=== PATIENT | female | born 1965 | race Caucasian/White ===

== ENCOUNTER 2017-02-18 20:21 | Emergency (ER) | payer MEDICAID ==
[~2017-02-18] VITALS: Ht 157.5 cm; Wt 104.5 kg
[~2017-02-18 20:21] MED LIST: ASPI-664 PO; CEPH-443 PO; CLIN-73 PO; HYDR-3498 PO; HYDR-762 PO; IBUP-1542 PO; IBUP800T25 PO; LISI30TA47 PO; MELO-110 PO; MTF1000T PO; NAPR-688 PO; ONDA4TAB14 PO; ONDA4TAB35 PO; PANT40TA3 PO; SITA1TBM PO; SMV40T PO
[2017-02-18 20:30] VITALS: Ht 157.5 cm; Wt 104.5 kg
--- NOTE | 2017-02-19 03:19 | ERA ---
ER Documentation Chief Complaint Date/Time DATE: 02/19/17 TIME: 03:18 Chief Complaint Dental pain HPI The patient is a 51-year-old female, presenting to the ER because of right lower molar pain for the last couple of days. She she was seen by her dentist who sent her to the ER because of high blood pressure and high glucose. He denies fever, chills, neck pain, chest pain, dyspnea, abdominal pain, vomiting, dysuria, diarrhea. She does not smoke or drink Past medical history: Diabetes mellitus, hypertension, dyslipidemia, depression Past surgical history: ROS All systems reviewed and are negative except as per history of present illness. Medications Home Meds Active Scripts Hydrocodone/Acetaminophen ([place] 10-325 Tablet) 1 Each Tablet, 1 TAB PO Q6H Y for PAIN, #7 TAB Prov:JUAN DIEGO MITCHELL MD 02/19/17 Ibuprofen* (Motrin*) 600 Mg Tab, 600 MG PO Q6H Y for PAIN AND OR ELEVATED TEMP, #30 TAB Prov:JUAN DIEGO MITCHELL MD 02/19/17 Clindamycin Hcl* (Clindamycin Hcl*) 300 Mg Capsule, 300 MG PO QID for 10 Days, CAP Prov:JUAN DIEGO MITCHELL MD 02/19/17 Ondansetron (Ondansetron Odt) 4 Mg Tab.rapdis, 4 MG PO Q6H Y for NAUSEA AND/OR VOMITING, #30 TAB Prov:AZEB MONTIEL MD 06/12/16 Ibuprofen* (Motrin*) 600 Mg Tab, 600 MG PO Q6H Y for PAIN AND OR ELEVATED TEMP, #30 TAB Prov:AZEB MONTIEL MD 06/12/16 Hydrocodone Bit-Acetaminophen* ([place]*) 10-325 Mg Tablet, 1 TAB PO Q6 Y for PAIN , #20 TAB Prov:HUBERT RED PA-C 09/26/15 Clindamycin Hcl* (Clindamycin Hcl*) 300 Mg Capsule, 300 MG PO TID for 10 Days, CAP Prov:HUBERT RED PA-C 09/26/15 Ibuprofen* (Motrin*) 800 Mg Tab, 800 MG PO Q6, #20 TAB Prov:DONNA ORNELAS MD 09/25/15 Hydrocodone Bit-Acetaminophen* ([place]*) 5-325 Mg Tab, 1 TAB PO Q6 Y for PAIN, # 16 TAB Prov:DONNA ORNELAS MD 09/25/15 Cephalexin* (Keflex*) 500 Mg Capsule, 500 MG PO QID for 10 Days, CAP Prov:DONNA ORNELAS MD 09/25/15 Pantoprazole* (Protonix*) 40 Mg Tablet.dr, 40 MG PO DAILY, #14 TAB Prov:ASHLEY BIRMINGHAM MD 09/04/15 Ondansetron Hcl* (Zofran* ODT) 4 mg -ODT Tab.disper, 4 MG PO Q6 Y for NAUSEA AND /OR VOMITING, #10 TAB Prov:ASHLEY BIRMINGHAM MD 09/04/15 Reported Medications Aspirin (Aspirin Low Dose) 81 Mg Tablet.dr, 81 MG PO DAILY 06/22/13 Sitagliptin Phos-Metformin Hcl (Janumet XR) 1 Each Tbmp.24hr, 1 EACH PO DAILY 06/22/13 Lisinopril* (Lisinopril*) 30 Mg Tablet, 40 MG PO DAILY 05/09/13 Meloxicam* (Mobic*) 15 Mg Tablet, 15 MG PO DAILY 05/09/13 Metformin* (Glucophage*) 1,000 Mg Tablet, 1000 MG PO BID 05/09/13 Naproxen* (Naproxen*) 500 Mg Tablet, 500 MG PO Y 05/09/13 Simvastatin (Simvastatin) 40 Mg Tablet, 40 MG PO DAILY 05/09/13 Allergies Allergies: Coded Allergies: Penicillins (Verified Allergy, Mild, 03/16/16) PMhx/Soc History of Surgery: Yes (C SECTION ) Anesthesia Reaction: No Hx Neurological Disorder: No Hx Respiratory Disorders: No Hx Cardiac Disorders: Yes (HTN) Hx Psychiatric Problems: No (DEPRESSION ) Hx Miscellaneous Medical Probl: Yes (CHOLESTEROL, DIABETES, ARTHRITIS) Hx Alcohol Use: No Hx Substance Use: No Hx Tobacco Use: No Physical Exam Vitals Vital Signs Date Time Temp Pulse Resp B/P Pulse Ox O2 Delivery O2 Flow Rate FiO2 02/19/17 03:28 87 27 180/111 100 Room Air 02/18/17 20:30 98.0 91 18 170/101 100 Physical Exam Const: No acute distress. Head: Atraumatic. Eyes: Normal Conjunctiva. ENT: Normal External Ears, Nose and Mouth. Decayed right lower molar with erythematous, Neck: Full range of motion. No meningismus. Resp: Clear to auscultation bilaterally. Cardio: Regular rate and rhythm, no murmurs. Abd: Soft, non distended, normal bowel sounds, non tender. Skin: No petechiae or rashes. Back: No midline or flank tenderness. Ext: No cyanosis, or edema. Neur: Awake and alert. No focal deficit Psych: Normal Mood and Affect. Result Diagram: 02/19/17 0344 02/19/17 0344 Results 24 hrs Laboratory Tests Test 02/18/17 20:35 02/19/17 03:31 02/19/17 03:44 Bedside Glucose 298mg/dL 328mg/dL White Blood Count 12.910^3/ul Red Blood Count 5.1310^6/ul Hemoglobin 15.5g/dl Hematocrit 44.8% Mean Corpuscular Volume 87.3fl Mean Corpuscular Hemoglobin 30.2pg Mean Corpuscular Hemoglobin Concent 34.6g/dl Red Cell Distribution Width 13.1% Platelet Count 21494^3/UL Mean Platelet Volume 11.6fl Neutrophils % 66.8% Lymphocytes % 24.2% Monocytes % 6.6% Eosinophils % 1.9% Basophils % 0.2% Nucleated Red Blood Cells % 0.0/100WBC Neutrophils # 8.610^3/ul Lymphocytes # 3.110^3/ul Monocytes # 0.910^3/ul Eosinophils # 0.210^3/ul Basophils # 0.010^3/ul Nucleated Red Blood Cells # 0.010^3/ul Sodium Level 137mmol/L Potassium Level 4.1mmol/L Chloride Level 101mmol/L Carbon Dioxide Level 25mmol/L Anion Gap 15 Blood Urea Nitrogen 11mg/dl Creatinine 0.54mg/dl Glucose Level 349mg/dl Calcium Level 9.4mg/dl Current Medications Medications (Trade) Dose Ordered Sig/Ramon Route PRN Reason Start Time Stop Time Status Last Admin Dose Admin Sodium Chloride (NS) 1,000 ml @ 1,000 mls/hr Q1H STAT IV 02/19/17 03:25 02/19/17 04:24 DC 02/19/17 03:49 Morphine Sulfate (morphine) 4 mg ONCE STAT IV 02/19/17 04:15 02/19/17 04:16 DC 02/19/17 04:21 Ondansetron HCl (Zofran Inj) 4 mg ONCE STAT IV 02/19/17 04:15 02/19/17 04:16 DC 02/19/17 04:20 Ketorolac Tromethamine (Toradol) 30 mg ONCE STAT IV 02/19/17 05:12 02/19/17 05:13 DC 02/19/17 05:17 Acetaminophen/ Hydrocodone Bitart ([place] (10/325)) 1 tab ONCE ONCE PO 02/19/17 06:00 02/19/17 06:01 Clindamycin HCl (Cleocin) 300 mg ONCE ONCE PO 02/19/17 06:00 02/19/17 06:01 Procedures/MDM MEDICAL MAKING DECISION: Th e patient is a 51-year-old female, presenting with acute dental pain, acute diabetic hyperglycemia. She was treated with 1 L normal saline for acute hyperglycemia, morphine 4 mg IV, Toradol 30 mg IV, [place] 10 mg p.o. for pain, Zofran 4 mg IV for nausea and clindamycin 300 mg p.o. for acute dental infection with good response. Departure Diagnosis: Primary Impression: Pain, dental Additional Impression: Hyperglycemia Condition: Good Comments I discussed the findings with the patient. I advised the patient to follow-up with the dentist in the morning, and return if any concern. JUAN DIEGO MITCHELL MD February 19, 2017 03:19
[2017-02-19] MEDS ORDERED: SOD CHLORIDE 0.9% 1,000 ML IV STA (03:25)
[2017-02-19 03:56] LABS: ADD SCAN DIFF NO
[2017-02-19 04:07] LABS: BASOPHILS % 0.2 % (0.0-2.0); EOSINOPHILS # 0.2 10^3/ul (0.0-0.5); EOSINOPHILS % 1.9 % (0.0-7.0); HEMATOCRIT 44.8 % (37.0-47.0); HEMOGLOBIN 15.5 g/dl (12.0-16.0); LYMPHOCYTES # 3.1 10^3/ul (0.8-2.9); LYMPHOCYTES % 24.2 % (15.0-51.0); MEAN CORPUSCULAR HEMOGLOBIN 30.2 pg (29.0-33.0); MEAN CORPUSCULAR HGB CONC 34.6 g/dl (32.0-37.0); MEAN CORPUSCULAR VOLUME 87.3 fl (82.0-101.0); MEAN PLATELET VOLUME 11.6 fl (7.4-10.4); MONOCYTE # 0.9 10^3/ul (0.3-0.9); MONOCYTES % 6.6 % (0.0-11.0); NEUTROPHIL # 8.6 10^3/ul (1.6-7.5); NEUTROPHILS % 66.8 % (39.0-77.0); PLATELET COUNT 358 10^3/UL (140-415); RED BLOOD COUNT 5.13 10^6/ul (4.20-5.40); RED CELL DISTRIBUTION WIDTH 13.1 % (11.5-14.5); WHITE BLOOD COUNT 12.9 10^3/ul (4.8-10.8)
[2017-02-19 04:13] LABS: CALCIUM 9.4 mg/dl (8.4-10.2); CREATININE 0.54 mg/dl (0.44-1.00); POTASSIUM 4.1 mmol/L (3.5-5.1)
[2017-02-19] MEDS ORDERED: ONDANSETRON 4 MG INJ IV STA (04:15)
[2017-02-19] MEDS ORDERED: morphine 4 MG/ML VIAL IV STA (04:15)
[2017-02-19] MEDS ORDERED: KETOROLAC 30 MG INJ IV STA (05:12)
[2017-02-19] MEDS ORDERED: IBUP-1542 PO (05:34)
[2017-02-19] MEDS ORDERED: HYDR-902 PO (05:34)
[2017-02-19] MEDS ORDERED: CLIN-73 PO (05:34)
[2017-02-19 06:00] VITALS: BP 136/92; PULSE 98; RESP 17; TEMP 98.8
[2017-02-19] MEDS ORDERED: CLINDAMYCIN 300 MG CAP PO ONE (06:00)
[2017-02-19] MEDS ORDERED: HYDROCODONE/APAP (10/325) TAB PO ONE (06:00)
== END 2017-02-19 06:06 | disposition home or self-care (01) ==
LOC: E/R 20:21
DX: K08.89 Other specified disorders of teeth and supporting structures (principal); E11.649 Type 2 diabetes mellitus with hypoglycemia without coma; I10 Essential (primary) hypertension; Z79.84 Long term (current) use of oral hypoglycemic drugs
CPT/HCPCS: 36415; 80048; 82962; 85025; 96361; 96374; 96375; J1885; J2270; J2405; J7030; Z7502; Z7610

== ENCOUNTER 2019-01-04 22:25 | Emergency (ER) | payer SELFPAY ==
[~2019-01-04 22:25] MED LIST changes: -ASPI-664 PO; +ASPI-818 PO; -CLIN-73 PO; +CLIN300C10 PO; +HYDR-3980 PO; -IBUP800T25 PO; +IBUP800T48 PO; -MELO-110 PO; +MELO15TA30 PO; +SIMV40TA3 PO; -SMV40T PO
== END 2019-01-04 23:15 | disposition left against medical advice (07) ==
LOC: E/R 22:25
DX: Z53.21 Procedure and treatment not carried out due to patient leaving prior to being seen by health care provider (principal)

== ENCOUNTER 2019-02-11 19:15 | Emergency (ER) | payer MEDICAID ==
[~2019-02-11] VITALS: Ht 157.5 cm; Wt 94.5 kg
[2019-02-11 19:26] VITALS: Ht 157.5 cm; Wt 94.5 kg
--- NOTE | 2019-02-11 19:47 | ERD ---
ER Documentation Chief Complaint Chief Complaint "HIGH BLOOD SUGAR" AND PALPITATIONS. HPI This is a 53-year-old female presents for an episode of palpitations, patient states that her blood sugar has been high the last 2 days, she is on event, and felt very anxious, and felt a feeling of shortness of breath tachycardia, for several seconds but subsequently resolved. This week she has noted that her blood sugar has been on the higher side in the 300s. She has not had any vomiting, no fever, no abdominal pain, no chest pain. Her symptoms self resolved, without any treatment ROS All systems reviewed and are negative except as per history of present illness. Medications Home Meds Active Scripts Hydrocodone/Acetaminophen ([place] 10-325 Tablet) 1 Each Tablet, 1 TAB PO Q6H PRN for PAIN, #7 TAB Prov:JUAN DIEGO MITCHELL MD 02/19/17 Ibuprofen* (Motrin*) 600 Mg Tab, 600 MG PO Q6H PRN for PAIN AND OR ELEVATED TEMP, #30 TAB Prov:JUAN DIEGO MITCHELL MD 02/19/17 Clindamycin Hcl* (Clindamycin Hcl*) 300 Mg Capsule, 300 MG PO QID for 10 Days, C AP Prov:JUAN DIEGO MITCHELL MD 02/19/17 Ondansetron (Ondansetron Odt) 4 Mg Tab.rapdis, 4 MG PO Q6H PRN for NAUSEA AND/OR VOMITING, #30 TAB Prov:AZEB MONTIEL MD 06/12/16 Ibuprofen* (Motrin*) 600 Mg Tab, 600 MG PO Q6H PRN for PAIN AND OR ELEVATED TEMP, #30 TAB Prov:AZEB MONTIEL MD 06/12/16 Hydrocodone Bit-Acetaminophen* ([place]*) 10-325 Mg Tablet, 1 TAB PO Q6 PRN for PAIN, #20 TAB Prov:HUBERT RED PA-C 09/26/15 Clindamycin Hcl* (Clindamycin Hcl*) 300 Mg Capsule, 300 MG PO TID for 10 Days, CAP Prov:HUBERT RED PA-C 09/26/15 Ibuprofen* (Motrin*) 800 Mg Tab, 800 MG PO Q6, #20 TAB Prov:DONNA ORNELAS MD 09/25/15 Hydrocodone Bit-Acetaminophen* ([place]*) 5-325 Mg Tab, 1 TAB PO Q6 PRN for PAIN, #16 TAB Prov:DONNA ORNELAS MD 09/25/15 Cephalexin* (Keflex*) 500 Mg Capsule, 500 MG PO QID for 10 Days, CAP Prov:DONNA ORNELAS MD 09/25/15 Pantoprazole* (Protonix*) 40 Mg Tablet.dr, 40 MG PO DAILY, #14 TAB Prov:ASHLEY BIRMINGHAM MD 09/04/15 Ondansetron Hcl* (Zofran* ODT) 4 mg -ODT Tab.disper, 4 MG PO Q6 PRN for NAUSEA AND/OR VOMITING, #10 TAB Prov:ASHLEY BIRMINGHAM MD 09/04/15 Reported Medications Aspirin (Aspirin Low Dose) 81 Mg Tablet.dr, 81 MG PO DAILY 06/22/13 Sitagliptin Phos-Metformin Hcl (Janumet XR) 1 Each Tbmp.24hr, 1 EACH PO DAILY 06/22/13 Lisinopril* (Lisinopril*) 30 Mg Tablet, 40 MG PO DAILY 05/09/13 Meloxicam* (Mobic*) 15 Mg Tablet, 15 MG PO DAILY 05/09/13 Metformin* (Glucophage*) 1,000 Mg Tablet, 1000 MG PO BID 05/09/13 Naproxen* (Naproxen*) 500 Mg Tablet, 500 MG PO PRN 05/09/13 Simvastatin (Simvastatin) 40 Mg Tablet, 40 MG PO DAILY 05/09/13 Allergies Allergies: Coded Allergies: Penicillins (Verified Allergy, Mild, 03/16/16) PMhx/Soc History of Surgery: Yes (C SECTION ) Anesthesia Reaction: No Hx Neurological Disorder: No Hx Respiratory Disorders: No Hx Cardiac Disorders: Yes (HTN) Hx Psychiatric Problems: No (DEPRESSION ) Hx Miscellaneous Medical Probl: Yes (CHOLESTEROL, DIABETES, ARTHRITIS) Hx Alcohol Use: No Hx Substance Use: No Hx Tobacco Use: No Physical Exam Vitals Vital Signs Date Temp Pulse Resp B/P (MAP) Pulse Ox O2 O2 Flow FiO2 Time Delivery Rate 02/11/19 102 21 179/111 98 Room Air 21:34 (133) 02/11/19 104 21 160/106 98 Room Air 20:30 (124) 02/11/19 108 24 163/111 99 Room Air 19:44 (128) 02/11/19 98.5 115 22 184/116 99 19:26 (138) Physical Exam Const: No acute distress, well-developed well-nourished Head: Atraumatic Eyes: Normal Conjunctiva ENT: Normal External Ears, Nose and Mouth. Neck: Full range of motion. No meningismus. Resp: Clear to auscultation bilaterally, no wheezes rales or rhonchi Cardio: Regular rate and rhythm, no murmurs Abd: Soft, non tender, non distended. Normal bowel sounds Skin: No petechiae or rashes Back: No midline or flank tenderness Ext: No cyanosis, or edema Neur: Awake and alert Psych: Normal Mood and Affect Result Diagram: 02/11/19200102/11/192001 Results 24 hrs Laboratory Tests Test 02/11/19 19:25 02/11/19 20:02 02/11/19 20:09 Bedside Glucose 397 mg/dL White Blood Count 7.7 10^3/ul Red Blood Count 5.05 10^6/ul Hemoglobin 14.7 g/dl Hematocrit 43.1 % Mean Corpuscular Volume 85.3 fl Mean Corpuscular Hemoglobin 29.1 pg Mean Corpuscular 34.1 g/dl Hemoglobin Concent Red Cell Distribution Width 12.6 % Platelet Count 285 10^3/UL Mean Platelet Volume 11.5 fl Immature Granulocytes % 0.100 % Neutrophils % 43.0 % Lymphocytes % 45.6 % Monocytes % 8.2 % Eosinophils % 2.7 % Basophils % 0.4 % Nucleated Red Blood Cells % 0.0 /100WBC Immature Granulocytes # 0.010 10^3/ul Neutrophils # 3.3 10^3/ul Lymphocytes # 3.5 10^3/ul Monocytes # 0.6 10^3/ul Eosinophils # 0.2 10^3/ul Basophils # 0.0 10^3/ul Nucleated Red Blood Cells # 0.0 10^3/ul Sodium Level 139 mmol/L Potassium Level 3.9 mmol/L Chloride Level 98 mmol/L Carbon Dioxide Level 26 mmol/L Anion Gap 15 Blood Urea Nitrogen 15 mg/dl Creatinine 0.49 mg/dl Est Glomerular Filtrat > 60 mL/min Rate mL/min Glucose Level 418 mg/dl Calcium Level 9.7 mg/dl Total Bilirubin 0.3 mg/dl Direct Bilirubin 0.00 mg/dl Indirect Bilirubin 0.3 mg/dl Aspartate Amino 26 IU/L Transf (AST/SGOT) Alanine 28 IU/L Aminotransferase (ALT/SGPT) Alkaline Phosphatase 138 IU/L Troponin I < 0.012 ng/ml Total Protein 7.5 g/dl Albumin 4.4 g/dl Globulin 3.10 g/dl Albumin/Globulin Ratio 1.41 Urine Color COLORLESS Urine Clarity CLEAR Urine pH 6.0 Urine Specific [place] 1.027 Urine Ketones TRACE mg/dL Urine Nitrite NEGATIVE mg/dL Urine Bilirubin NEGATIVE mg/dL Urine Urobilinogen NEGATIVE mg/dL Urine Leukocyte Esterase NEGATIVE Yancy/ul Urine Hemoglobin NEGATIVE mg/dL Urine Glucose 3+ mg/dL Urine Total Protein NEGATIVE mg/dl Current Medications Medications Dose Sig/Ramon Start Time Status Last (Trade) Ordered Route PRN Stop Time Admin Dose Reason Admin Sodium 1,000 ml @ Q1H ONCE 02/11/19 DC 02/11/19 Chloride 1,000 mls/hr IV 21:30 21:39 02/11/19 22:29 Insulin 10 unit ONCE ONCE 02/11/19 Human SC 23:30 Regular 02/11/19 23:31 (Humulin R) Procedures/MDM This is a 53-year-old female presents for motion of hyperglycemia, as well as palpitations. Her EKG showed no evidence of arrhythmia or ischemia. She never actually had chest pain, but given her history of diabetes, I considered an anginal equivalent, and she had a cardiac work-up with a negative troponin. I discussed findings with the patient, who felt comfortable with discharge plan of care, she was given IV fluids and 10 units of insulin, she had no evidence of DK A, on lab evaluation, and she has no infectious symptoms, and was tolerating oral intake. At discharge she was in no acute distress. 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
[2019-02-11] MEDS ORDERED: SOD CHLORIDE 0.9% 1,000 ML IV ONE (21:30)
[2019-02-11] MEDS ORDERED: INSULIN REGULAR, HUMAN 100 UNIT/1 ML 3ML VIAL SC ONE (23:30)
[2019-02-12] MEDS ORDERED: INSULIN REGULAR, HUMAN 100 UNIT/1 ML 3ML VIAL SC ONE
[2019-02-12 01:30] VITALS: BP 114/91; PULSE 87; RESP 19
== END 2019-02-12 01:30 | disposition home or self-care (01) ==
LOC: E/R 19:15
DX: R00.2 Palpitations (principal); E13.65 Other specified diabetes mellitus with hyperglycemia; I10 Essential (primary) hypertension; Z79.82 Long term (current) use of aspirin; Z79.84 Long term (current) use of oral hypoglycemic drugs
CPT/HCPCS: 36415; 71045; 80053; 81003; 82962; 84484; 85025; 93005; 96372; J7030; Z7502; Z7610; J1815

== ENCOUNTER 2019-02-19 07:29 | Emergency (ER) | payer MEDICAID ==
[~2019-02-19] VITALS: Wt 90.0 kg
[2019-02-19 07:31] VITALS: BP 140/89; PULSE 79; RESP 18
[2019-02-19] MEDS ORDERED: HYDR-4011 PO (07:49)
[2019-02-19] MEDS ORDERED: IBUP800T48 PO (07:49)
[2019-02-19] MEDS ORDERED: CLIN300C10 PO (07:49)
--- NOTE | 2019-02-19 07:54 | ERD ---
ER Documentation Chief Complaint Chief Complaint TOOTH ACHE, LEFT FACIAL SWELLING HPI 53-year-old female presents with dental pain in her left frontal lower dental tooth. She has been seen here multiple times for this she has a history of tooth decay. She has not yet seen a dentist for this. No fever. She is jarret erating oral intake. No nausea or vomiting. No trauma. No chest pain palpitations no shortness of breath. ROS All systems reviewed and are negative except as per history of present illness. Medications Home Meds Active Scripts Clindamycin Hcl* (Clindamycin Hcl*) 300 Mg Capsule, 300 MG PO TID for 7 Days, CAP Prov:HUBERT RED PA-C 02/19/19 Hydrocodone/Acetaminophen ([place] 5-325 Tablet) 1 Each Tablet, 1 TAB PO Q6H PRN for PAIN, #12 TAB Prov:HUBERT RED PA-C 02/19/19 Ibuprofen* (Motrin*) 800 Mg Tab, 800 MG PO Q6, #30 TAB Prov:HUBERT RED PA-C 02/19/19 Hydrocodone/Acetaminophen ([place] 10-325 Tablet) 1 Each Tablet, 1 TAB PO Q6H PRN for PAIN, #7 TAB Prov:JUAN DIEGO MITCHELL MD 02/19/17 Ibuprofen* (Motrin*) 600 Mg Tab, 600 MG PO Q6H PRN for PAIN AND OR ELEVATED TEMP, #30 TAB Prov:JUAN DIEGO MITCHELL MD 02/19/17 Clindamycin Hcl* (Clindamycin Hcl*) 300 Mg Capsule, 300 MG PO QID for 10 Days, CAP Prov:JUAN DIEGO MITCHELL MD 02/19/17 Ondansetron (Ondansetron Odt) 4 Mg Tab.rapdis, 4 MG PO Q6H PRN for NAUSEA AND/OR VOMITING, #30 TAB Prov:AZEB MONTIEL MD 06/12/16 Ibuprofen* (Motrin*) 600 Mg Tab, 600 MG PO Q6H PRN for PAIN AND OR ELEVATED TEMP, #30 TAB Prov:AZEB MONTIEL MD 06/12/16 Hydrocodone Bit-Acetaminophen* ([place]*) 10-325 Mg Tablet, 1 TAB PO Q6 PRN for PAIN, #20 TAB Prov:HUBERT RED PA-C 09/26/15 Clindamycin Hcl* (Clindamycin Hcl*) 300 Mg Capsule, 300 MG PO TID for 10 Days, CAP Prov:HUBERT RED PA-C 09/26/15 Ibuprofen* (Motrin*) 800 Mg Tab, 800 MG PO Q6, #20 TAB Prov:DONNA ORNELAS MD 09/25/15 Hydrocodone Bit-Acetaminophen* ([place]*) 5-325 Mg Tab, 1 TAB PO Q6 PRN for PAIN, #16 TAB Prov:DONNA ORNELAS MD 09/25/15 Cephalexin* (Keflex*) 500 Mg Capsule, 500 MG PO QID for 10 Days, CAP Prov:DONNA ORNELAS MD 09/25/15 Pantoprazole* (Protonix*) 40 Mg Tablet., 40 MG PO DAILY, #14 TAB Prov:ASHLEY BIRMINGHAM MD 09/04/15 Ondansetron Hcl* (Zofran* ODT) 4 mg -ODT Tab.disper, 4 MG PO Q6 PRN for NAUSEA AND/OR VOMITING, #10 TAB Prov:ASLHEY BIRMINGHAM MD 09/04/15 Reported Medications Aspirin (Aspirin Low Dose) 81 Mg Tablet.dr, 81 MG PO DAILY 06/22/13 Sitagliptin Phos-Metformin Hcl (Janumet XR) 1 Each Tbmp.24hr, 1 EACH PO DAILY 06/22/13 Lisinopril* (Lisinopril*) 30 Mg Tablet, 40 MG PO DAILY 05/09/13 Meloxicam* (Mobic*) 15 Mg Tablet, 15 MG PO DAILY 05/09/13 Metformin* (Glucophage*) 1,000 Mg Tablet, 1000 MG PO BID 05/09/13 Naproxen* (Naproxen*) 500 Mg Tablet, 500 MG PO PRN 05/09/13 Simvastatin (Simvastatin) 40 Mg Tablet, 40 MG PO DAILY 05/09/13 Allergies Allergies: Coded Allergies: Penicillins (Verified Allergy, Mild, 03/16/16) PMhx/Soc History of Surgery: Yes (C SECTION ) Anesthesia Reaction: No Hx Neurological Disorder: No Hx Respiratory Disorders: No Hx Cardiac Disorders: Yes (HTN) Hx Psychiatric Problems: No (DEPRESSION ) Hx Miscellaneous Medical Probl: Yes (CHOLESTEROL, DIABETES, ARTHRITIS) Hx Alcohol Use: No Hx Substance Use: No Hx Tobacco Use: No FmHx Family History: diabetes Physical Exam Vitals Vital Signs Date Temp Pulse Resp B/P (MAP) Pulse Ox O2 O2 Flow FiO2 Time Delivery Rate 02/19/19 98.1 79 18 140/89 99 07:31 (106) Physical Exam Const: No acute distress Head: Atraumatic Eyes: Normal Conjunctiva ENT: Normal External Ears, Nose. Poor dentition with multiple dental caries and chipped teeth, no significant oral swelling, no tonsillar erythema or edema, uvula midline, no active bleeding or drainage Neck: Full range of motion. No meningismus. Resp: Clear to auscultation bilaterally Cardio: Regular rate and rhythm, no murmurs Results 24 hrs Current Medications Medications Dose Sig/Ramon Start Time Status Last (Trade) Ordered Route PRN Stop Time Admin Dose Reason Admin 1 tab ONCE ONCE 02/19/19 Acetaminophen PO 08:00 02/19/19 / 08:01 Hydrocodone Bitart ([place] (5/325)) Procedures/MDM Is a 53-year-old female who presents with dental pain. This is chronic and she been seen here for this before. She does have multiple dental caries and very poor dentition. She has not yet seen a dentist for this flareup. She was given a [place] here and she is not driving. Prescription for ibuprofen and a small amount of [place] given as well as clindamycin. She was also given outpatient dental clinic follow-up. No evidence of abscess formation. Patient counseled regarding my diagnostic impression and care plan. Prior to discharge all questions answered. Pt agrees with treatment plan and understands strict return precautions. Pt is instructed to follow up with primary care provider within 24- 48 hours. Precautionary instructions provided including instructions to return to the ER if not improving or for any worsening or changing symptoms or concerns. Departure Diagnosis: Primary Impression: Tooth disease Condition: Stable Patient Instructions: Dental Pain Referrals: [facility] ([facility] walk in clinic) Additional Instructions: Llame al doctor ALEJANDRO y betzy alon NEVAEH PARA DENTRO DE 1-2 DIAZ.Dgale a la secretaria que nosotros le instruimos hacer esta nevaeh.Avise o llame si larry condicin se empeora antes de la nevaeh. Regresa aqui si peor o no mejor. HUBERT RED PA-C February 19, 2019 07:54
[2019-02-19] MEDS ORDERED: HYDROCODONE/APAP (5/325) TAB PO ONE (08:00)
== END 2019-02-19 08:00 | disposition home or self-care (01) ==
LOC: FTE 07:29
DX: K08.9 Disorder of teeth and supporting structures, unspecified (principal); I10 Essential (primary) hypertension; E11.9 Type 2 diabetes mellitus without complications; Z79.82 Long term (current) use of aspirin; Z79.84 Long term (current) use of oral hypoglycemic drugs
CPT/HCPCS: Z7502; Z7610; 99283

== ENCOUNTER 2019-06-15 17:37 | Emergency (ER) | payer MEDICAID ==
[~2019-06-15] VITALS: Ht 154.9 cm; Wt 94.3 kg
[~2019-06-15 17:37] MED LIST changes: +ACET500C5 PO; +ACYC800T5 PO; +HYDR-4011 PO
[2019-06-15 18:05] VITALS: BP 144/91; PULSE 98; RESP 18; Ht 154.9 cm; Wt 94.3 kg
== END 2019-06-15 19:10 | disposition home or self-care (01) ==
LOC: E/R 17:37
DX: B02.9 Zoster without complications (principal); E11.9 Type 2 diabetes mellitus without complications; I10 Essential (primary) hypertension; Z79.84 Long term (current) use of oral hypoglycemic drugs
CPT/HCPCS: 99283